=== PATIENT | female | born 1965 | race Caucasian/White ===

== ENCOUNTER 2023-11-15 12:06 | Emergency (ER) | payer MEDICAID, OTHER ==
[~2023-11-15] VITALS: Ht 172.7 cm; Wt 100.0 kg
[2023-11-15 12:53] VITALS: BP 143/98; PULSE 103; RESP 24; TEMP 97.7; O2SAT 96
== END 2023-11-15 13:03 | disposition home or self-care (01) ==
LOC: ER 12:15
DX: R04.0 Epistaxis (principal); Z88.0 Allergy status to penicillin
CPT/HCPCS: 30901

== ENCOUNTER 2023-11-16 11:50 | Emergency (ER) | payer MEDICAID ==
[~2023-11-16] VITALS: Ht 172.7 cm; Wt 89.0 kg
[2023-11-16 12:23] VITALS: BP 148/102; PULSE 96; RESP 16; TEMP 97.6; O2SAT 94
== END 2023-11-16 12:28 | disposition home or self-care (01) ==
LOC: ER 11:50
DX: R04.0 Epistaxis (principal); Z48.02 Encounter for removal of sutures; Z53.21 Procedure and treatment not carried out due to patient leaving prior to being seen by health care provider